=== PATIENT | female | born 2000 | race Two or more races ===

== ENCOUNTER 2022-12-29 16:24 | Emergency (ER) | payer MEDICAID, OTHER ==
[~2022-12-29] VITALS: Ht 167.6 cm; Wt 89.0 kg
[2022-12-29 16:33] VITALS: BP 117/86
[2022-12-29 18:02] LABS: BASOPHILS % 0.3 % (0.0-2.0); HEMATOCRIT. 41.4 % (36.0-48.0); HEMOGLOBIN. 14.2 g/dL (12.0-16.0); LYMPHOCYTES % 26.2 % (20.0-50.0); MEAN CORPUSCULAR HEMOGLOBIN 30.4 pg (28.0-32.0); MEAN CORPUSCULAR VOLUME 88.9 fL (81.0-99.0); MEAN PLATELET VOLUME 10.1 fl (7.4-10.4); MONOCYTES % 8.2 % (2.0-8.0); NEUTROPHILS % 63.3 % (40.0-76.0); PLATELET 204 x1000/uL (130-400); RED BLOOD CELL COUNT 4.66 mill/uL (4.2-5.4); RED CELL DISTRIBUTION WIDTH 13.2 % (11.6-14.6)
[2022-12-29 18:28] LABS: HCG SCREEN NEGATIVE
== END 2022-12-29 22:45 | disposition left against medical advice (07) ==
LOC: ER 17:23
DX: Z53.21 Procedure and treatment not carried out due to patient leaving prior to being seen by health care provider (principal)
CPT/HCPCS: 36415; 84703; 85025; 99281